=== PATIENT | female | born 1995 | race Caucasian/White ===

== ENCOUNTER 2018-07-18 08:10 | Emergency (ER) | payer MEDICAID ==
[2018-07-18] MEDS: SOD CHLORIDE 0.9% 1,000 ML IV (08:57)
[2018-07-18] MEDS: ONDANSETRON 4 MG INJ IV (08:57)
[2018-07-18 09:05] LABS: ADD MAN DIFF? NO
[2018-07-18 09:07] LABS: WHITE BLOOD COUNT 10.2 10^3/ul (4.8-10.8)
[2018-07-18 09:07] LABS: BASOPHILS % 0.3 % (0.0-2.0); EOSINOPHILS # 0.1 10^3/ul (0.0-0.5); EOSINOPHILS % 0.9 % (0.0-7.0); HEMATOCRIT 42.7 % (37.0-47.0); HEMOGLOBIN 14.2 g/dl (12.0-16.0); LYMPHOCYTES # 1.3 10^3/ul (0.8-2.9); MEAN CORPUSCULAR HEMOGLOBIN 28.8 pg (29.0-33.0); MEAN CORPUSCULAR HGB CONC 33.3 g/dl (32.0-37.0); MEAN CORPUSCULAR VOLUME 86.6 fl (82.0-101.0); MEAN PLATELET VOLUME 9.1 fl (7.4-10.4); MONOCYTE # 0.5 10^3/ul (0.3-0.9); MONOCYTES % 4.7 % (0.0-11.0); NEUTROPHIL # 8.2 10^3/ul (1.6-7.5); NEUTROPHILS % 80.8 % (39.0-77.0); PLATELET COUNT 368 10^3/UL (140-415); RED BLOOD COUNT 4.93 10^6/ul (4.20-5.40)
[2018-07-18] MEDS: KETOROLAC 30 MG INJ IV (09:10)
[2018-07-18 09:16] LABS: ADD UMIC YES; UR AMORPHOUS CRYSTAL FEW /HPF (NONE SEEN); UR ASCORBIC ACID NEGATIVE (NEGATIVE); UR BACTERIA FEW /HPF (NONE SEEN); UR BILIRUBIN (Dip) NEGATIVE (NEGATIVE); UR BLOOD (Dip) NEGATIVE (NEGATIVE); UR CLARITY CLOUDY (CLEAR); UR COLOR YELLOW (YELLOW); UR GLUCOSE (Dip) NEGATIVE (NEGATIVE); UR KETONES (Dip) NEGATIVE (NEGATIVE); UR LEUKOCYTE ESTERASE (Dip) NEGATIVE Leu/ul (NEGATIVE); UR MUCUS FEW /HPF (NONE SEEN); UR NITRITE (Dip) NEGATIVE (NEGATIVE); UR RBC 2 /HPF (0-5); UR SPECIFIC GRAVITY (Dip) 1.024 (1.003-1.030); UR SQUAMOUS EPITHELIAL CELL MODERATE /HPF (FEW); UR TOTAL PROTEIN (Dip) NEGATIVE (NEGATIVE); UR UROBILINOGEN (Dip) NEGATIVE (NEGATIVE); UR WBC 6 /HPF (0-5)
[2018-07-18 09:34] LABS: ALANINE AMINOTRANSFERASE 114 IU/L (13-69); ALBUMIN 4.1 g/dl (3.3-4.9); ALBUMIN/GLOBULIN RATIO 1.13; ALKALINE PHOSPHATASE 91 IU/L (42-121); ANION GAP 11 (5-13); ASPARTATE AMINO TRANSFERASE 475 IU/L (15-46); BILIRUBIN,INDIRECT 0.8 mg/dl (0-1.1); BILIRUBIN,TOTAL 0.8 mg/dl (0.2-1.3); BLOOD UREA NITROGEN 12 mg/dl (7-20); CALCIUM 9.5 mg/dl (8.4-10.2); CARBON DIOXIDE 29 mmol/L (21-31); CHLORIDE 102 mmol/L (97-110); Estimated GFR > 60 mL/min (>60); GLUCOSE 104 mg/dl (70-220); LIPASE 82 U/L (23-300); POTASSIUM 4.3 mmol/L (3.5-5.1); SODIUM 142 mmol/L (135-144); TOTAL PROTEIN 7.7 g/dl (6.1-8.1)
== END 2018-07-18 10:19 | disposition home or self-care (01) ==
LOC: FTE 08:10
DX: K80.80 Other cholelithiasis without obstruction (principal); R79.89 Other specified abnormal findings of blood chemistry
CPT/HCPCS: 36415; 76705; 80053; 81001; 81025; 83690; 85025; 96361; 96374; 96375; 99285-25

== ENCOUNTER 2018-07-18 18:57 | Inpatient (IN) | payer MEDICAID ==
[2018-07-18] MEDS: SOD CHLORIDE 0.9% 1,000 ML IV (19:47)
[2018-07-18] MEDS: ONDANSETRON 4 MG INJ IV (19:47)
[2018-07-18] MEDS: morphine 4 MG/ML VIAL IV (19:47)
[2018-07-18 20:07] LABS: ADD MAN DIFF? NO
[2018-07-18 20:09] LABS: WHITE BLOOD COUNT 6.6 10^3/ul (4.8-10.8)
[2018-07-18 20:09] LABS: BASOPHILS % 0.5 % (0.0-2.0); EOSINOPHILS % 0.6 % (0.0-7.0); HEMATOCRIT 40.4 % (37.0-47.0); HEMOGLOBIN 13.5 g/dl (12.0-16.0); LYMPHOCYTES # 0.8 10^3/ul (0.8-2.9); LYMPHOCYTES % 11.5 % (15.0-51.0); MEAN CORPUSCULAR HGB CONC 33.4 g/dl (32.0-37.0); MEAN CORPUSCULAR VOLUME 86.9 fl (82.0-101.0); MEAN PLATELET VOLUME 9.1 fl (7.4-10.4); MONOCYTE # 0.5 10^3/ul (0.3-0.9); NEUTROPHIL # 5.2 10^3/ul (1.6-7.5); NEUTROPHILS % 79.1 % (39.0-77.0); PLATELET COUNT 335 10^3/UL (140-415); RED BLOOD COUNT 4.65 10^6/ul (4.20-5.40); RED CELL DISTRIBUTION WIDTH 12.1 % (11.5-14.5)
[2018-07-18 20:19] LABS: ADD UMIC NO; UR AMORPHOUS CRYSTAL FEW /HPF (NONE SEEN); UR ASCORBIC ACID NEGATIVE (NEGATIVE); UR BACTERIA FEW /HPF (NONE SEEN); UR BILIRUBIN (Dip) NEGATIVE (NEGATIVE); UR BLOOD (Dip) NEGATIVE (NEGATIVE); UR CLARITY SLIGHTLY CLOUDY (CLEAR); UR COLOR YELLOW (YELLOW); UR GLUCOSE (Dip) NEGATIVE (NEGATIVE); UR KETONES (Dip) NEGATIVE (NEGATIVE); UR LEUKOCYTE ESTERASE (Dip) NEGATIVE Leu/ul (NEGATIVE); UR MUCUS FEW /HPF (NONE SEEN); UR NITRITE (Dip) NEGATIVE (NEGATIVE); UR RBC 2 /HPF (0-5); UR SPECIFIC GRAVITY (Dip) 1.016 (1.003-1.030); UR SQUAMOUS EPITHELIAL CELL FEW /HPF (FEW); UR TOTAL PROTEIN (Dip) NEGATIVE (NEGATIVE); UR UROBILINOGEN (Dip) NEGATIVE (NEGATIVE); UR WBC 2 /HPF (0-5)
[2018-07-18 20:29] LABS: INR 0.93; PROTIME 12.5 Sec (11.9-14.9)
[2018-07-18 20:32] LABS: ALANINE AMINOTRANSFERASE 719 IU/L (13-69); ALBUMIN 4.7 g/dl (3.3-4.9); ALBUMIN/GLOBULIN RATIO 1.62; ALKALINE PHOSPHATASE 137 IU/L (42-121); ANION GAP 8 (5-13); BILIRUBIN,INDIRECT 1.5 mg/dl (0-1.1); BILIRUBIN,TOTAL 1.7 mg/dl (0.2-1.3); BLOOD UREA NITROGEN 8 mg/dl (7-20); CALCIUM 9.4 mg/dl (8.4-10.2); CARBON DIOXIDE 32 mmol/L (21-31); CHLORIDE 103 mmol/L (97-110); CREATININE 0.67 mg/dl (0.44-1.00); Estimated GFR > 60 mL/min (>60); GLUCOSE 115 mg/dl (70-220); LIPASE 188 U/L (23-300); POTASSIUM 4.3 mmol/L (3.5-5.1); SODIUM 143 mmol/L (135-144); TOTAL PROTEIN 7.6 g/dl (6.1-8.1)
[2018-07-18 20:49] LABS: ASPARTATE AMINO TRANSFERASE 2484 IU/L (15-46)
[2018-07-18] MEDS: SOD CHLORIDE 0.9% 100 ML (21:01)
[2018-07-18] MEDS: IOHEXOL 300MG/ML 150 ML BTL (21:01)
[2018-07-18] MEDS ORDERED: ONDANSETRON 4 MG INJ IV (21:30)
[2018-07-18] MEDS ORDERED: ACETAMINOPHEN 325 MG TAB PO (21:30)
[2018-07-18] MEDS: AMPICILLIN/SULB 3 GM/NS (PMX) 100 ML IVPB (21:58)
[2018-07-19] MEDS ORDERED: NACL 0.9% 3 ML SYG IV
[2018-07-19] MEDS ORDERED: ALBUTEROL/IPRATROPIUM (NEB) 3 ML AMP HHN
[2018-07-19] MEDS ORDERED: ONDANSETRON 4 MG INJ IV
[2018-07-19] MEDS: DEXTROSE 5%-0.45% NACL 1,000 ML IV ×3 (00:34→18:24)
[2018-07-19] MEDS: KETOROLAC 30 MG INJ IV ×3 (00:35→23:12)
[2018-07-19 07:06] LABS: ADD MAN DIFF? NO
[2018-07-19 07:15] LABS: BASOPHILS % 0.4 % (0.0-2.0); EOSINOPHILS # 0.1 10^3/ul (0.0-0.5); EOSINOPHILS % 1.5 % (0.0-7.0); HEMATOCRIT 37.4 % (37.0-47.0); HEMOGLOBIN 12.3 g/dl (12.0-16.0); LYMPHOCYTES # 1.1 10^3/ul (0.8-2.9); LYMPHOCYTES % 23.4 % (15.0-51.0); MEAN CORPUSCULAR HEMOGLOBIN 28.8 pg (29.0-33.0); MEAN CORPUSCULAR HGB CONC 32.9 g/dl (32.0-37.0); MEAN CORPUSCULAR VOLUME 87.6 fl (82.0-101.0); MEAN PLATELET VOLUME 9.5 fl (7.4-10.4); MONOCYTE # 0.3 10^3/ul (0.3-0.9); MONOCYTES % 6.1 % (0.0-11.0); NEUTROPHIL # 3.2 10^3/ul (1.6-7.5); NEUTROPHILS % 68.4 % (39.0-77.0); PLATELET COUNT 320 10^3/UL (140-415); RED BLOOD COUNT 4.27 10^6/ul (4.20-5.40); RED CELL DISTRIBUTION WIDTH 12.2 % (11.5-14.5)
[2018-07-19 07:15] LABS: WHITE BLOOD COUNT 4.6 10^3/ul (4.8-10.8)
[2018-07-19 07:37] LABS: ALANINE AMINOTRANSFERASE 711 IU/L (13-69); ALBUMIN 3.2 g/dl (3.3-4.9); ALBUMIN/GLOBULIN RATIO 1.14; ALKALINE PHOSPHATASE 124 IU/L (42-121); ANION GAP 8 (5-13); BILIRUBIN,INDIRECT 1.7 mg/dl (0-1.1); BILIRUBIN,TOTAL 2.4 mg/dl (0.2-1.3); BLOOD UREA NITROGEN 7 mg/dl (7-20); CALCIUM 8.7 mg/dl (8.4-10.2); CARBON DIOXIDE 26 mmol/L (21-31); CHLORIDE 107 mmol/L (97-110); CREATININE 0.64 mg/dl (0.44-1.00); Estimated GFR > 60 mL/min (>60); GLUCOSE 108 mg/dl (70-220); PHOSPHORUS 3.4 mg/dl (2.5-4.9); POTASSIUM 3.9 mmol/L (3.5-5.1); SODIUM 141 mmol/L (135-144)
[2018-07-19 07:43] LABS: ASPARTATE AMINO TRANSFERASE 1398 IU/L (15-46)
[2018-07-19] MEDS: FAMOTIDINE 20 MG INJ IV ×2 (09:21→20:42)
[2018-07-19] MEDS: PIPER-TAZO 3.375 GM IV (PMX) 100 ML IVPB ×3 (10:13→18:24)
[2018-07-19 16:16] LABS: GAMMA GLUTAMYL TRANSPEPTIDASE 536 IU/L (0-50)
[2018-07-20] MEDS: PIPER-TAZO 3.375 GM IV (PMX) 100 ML IVPB ×4 (00:13→18:00)
[2018-07-20] MEDS: DEXTROSE 5%-0.45% NACL 1,000 ML IV ×4 (00:59→17:39)
[2018-07-20 06:32] LABS: ADD MAN DIFF? NO
[2018-07-20 06:39] LABS: WHITE BLOOD COUNT 5.3 10^3/ul (4.8-10.8)
[2018-07-20 06:39] LABS: BASOPHILS % 0.4 % (0.0-2.0); EOSINOPHILS # 0.4 10^3/ul (0.0-0.5); EOSINOPHILS % 6.6 % (0.0-7.0); HEMATOCRIT 35.8 % (37.0-47.0); HEMOGLOBIN 11.8 g/dl (12.0-16.0); LYMPHOCYTES # 1.8 10^3/ul (0.8-2.9); LYMPHOCYTES % 32.8 % (15.0-51.0); MEAN CORPUSCULAR HEMOGLOBIN 29.4 pg (29.0-33.0); MEAN CORPUSCULAR VOLUME 89.1 fl (82.0-101.0); MEAN PLATELET VOLUME 9.3 fl (7.4-10.4); MONOCYTE # 0.5 10^3/ul (0.3-0.9); MONOCYTES % 8.8 % (0.0-11.0); NEUTROPHIL # 2.7 10^3/ul (1.6-7.5); NEUTROPHILS % 51.2 % (39.0-77.0); PLATELET COUNT 270 10^3/UL (140-415); RED BLOOD COUNT 4.02 10^6/ul (4.20-5.40); RED CELL DISTRIBUTION WIDTH 12.4 % (11.5-14.5)
[2018-07-20 07:00] LABS: INR 0.96; PROTIME 12.9 Sec (11.9-14.9)
[2018-07-20] MEDS ORDERED: ACETAMINOPHEN 1000 MG/100 ML IVPB (07:00)
[2018-07-20 07:06] LABS: MAGNESIUM 1.9 mg/dl (1.7-2.5)
[2018-07-20 07:06] LABS: PHOSPHORUS 3.6 mg/dl (2.5-4.9)
[2018-07-20 07:07] LABS: ALANINE AMINOTRANSFERASE 449 IU/L (13-69); ALBUMIN 2.9 g/dl (3.3-4.9); ALBUMIN/GLOBULIN RATIO 1.03; ALKALINE PHOSPHATASE 121 IU/L (42-121); ANION GAP 7 (5-13); ASPARTATE AMINO TRANSFERASE 416 IU/L (15-46); BLOOD UREA NITROGEN 10 mg/dl (7-20); CALCIUM 8.4 mg/dl (8.4-10.2); CARBON DIOXIDE 27 mmol/L (21-31); CHLORIDE 107 mmol/L (97-110); CREATININE 0.75 mg/dl (0.44-1.00); Estimated GFR > 60 mL/min (>60); GLUCOSE 89 mg/dl (70-220); POTASSIUM 3.8 mmol/L (3.5-5.1); SODIUM 141 mmol/L (135-144); TOTAL PROTEIN 5.7 g/dl (6.1-8.1)
[2018-07-20 08:01] LABS: BILIRUBIN,TOTAL 2.4 mg/dl (0.2-1.3)
[2018-07-20] MEDS: FAMOTIDINE 20 MG INJ IV ×2 (09:24→21:45)
[2018-07-20 11:25] LABS: AMPHETAMINE/METHAMPHETAMINE Negative (NEGATIVE); BARBITURATES Negative (NEGATIVE); BENZODIAZEPINES Negative (NEGATIVE); CANNABINOIDS Negative (NEGATIVE); COCAINE Negative (NEGATIVE); OPIATES Negative (NEGATIVE)
[2018-07-20 12:01] LABS: MITOCHONDRIAL TB NEGATIVE (NEGATIVE); SMOOTH MUSCLE AB SCREEN NEGATIVE (NEGATIVE)
[2018-07-20] MEDS: KETOROLAC 30 MG INJ IV (12:42)
[2018-07-20] MEDS ORDERED: LIDOCAINE 2% (MDV) 20 ML INJ (14:33)
[2018-07-20] MEDS ORDERED: LIDOCAINE 0.5% (MDV) 50 ML INJ (14:33)
[2018-07-20] MEDS ORDERED: BUPIVACAINE 0.25%/EPI (SDV) 30 ML INJ (14:33)
[2018-07-20 16:31] LABS: ANA SCREEN NEGATIVE (NEGATIVE)
[2018-07-20] MEDS ORDERED: MIDAZOLAM 1 MG/ML 2 ML INJ (18:48)
[2018-07-20] MEDS ORDERED: LIDOCAINE 2% (SDV) 5 ML INJ (18:49)
[2018-07-20] MEDS ORDERED: PROPOFOL 20 ML (18:49)
[2018-07-20] MEDS ORDERED: FENTAnyl 50 MCG/ML VIAL (18:49)
[2018-07-20] MEDS ORDERED: ROPIVACAINE 0.5 % 30 ML VIAL (18:56)
[2018-07-20] MEDS ORDERED: ONDANSETRON 4 MG INJ (18:59)
[2018-07-20] MEDS ORDERED: DEXAMETHASONE 4 MG/ML 1 ML INJ (18:59)
[2018-07-20] MEDS ORDERED: FAMOTIDINE 20 MG INJ (19:00)
[2018-07-20] MEDS ORDERED: CEFAZOLIN 1 GM INJ (19:04)
[2018-07-20] MEDS ORDERED: metroNIDAZOLE 500 MG/NS (PMX) 100 ML IVPB (19:04)
[2018-07-20] MEDS ORDERED: IOHEXOL 300MG/ML 30 ML BTL (19:04)
[2018-07-20] MEDS ORDERED: ONDANSETRON 4 MG INJ IV (19:30)
[2018-07-20] MEDS ORDERED: PROCHLORPERAZINE 10 MG INJ IV (19:30)
[2018-07-20] MEDS ORDERED: HYDROmorphONE 1 MG/5 ML IV SYRINGE IV (19:30)
[2018-07-20] MEDS ORDERED: FENTAnyl 50 MCG/ML VIAL IV (19:30)
[2018-07-20] MEDS ORDERED: MEPERIDINE 25 MG INJ IV (19:30)
[2018-07-20] MEDS ORDERED: DIPHENHYDRAMINE 50 MG INJ IV (19:30)
[2018-07-20] MEDS ORDERED: HYDROmorphONE 2 MG/ML SYG (19:40)
[2018-07-20] MEDS ORDERED: SUGAMMADEX SODIUM 200 MG/2 ML VIAL IV (19:48)
[2018-07-21] MEDS: PIPER-TAZO 3.375 GM IV (PMX) 100 ML IVPB ×5 (00:28→23:58)
[2018-07-21] MEDS: KETOROLAC 30 MG INJ IV ×3 (00:36→20:19)
[2018-07-21] MEDS: DEXTROSE 5%-0.45% NACL 1,000 ML IV ×6 (01:59→23:58)
[2018-07-21] MEDS: morphine 2 MG INJ IV ×3 (05:19→15:56)
[2018-07-21 05:21] LABS: ADD MAN DIFF? NO
[2018-07-21 05:27] LABS: BASOPHILS % 0.2 % (0.0-2.0); EOSINOPHILS % 0.1 % (0.0-7.0); HEMOGLOBIN 12.5 g/dl (12.0-16.0); LYMPHOCYTES # 0.8 10^3/ul (0.8-2.9); LYMPHOCYTES % 7.7 % (15.0-51.0); MEAN CORPUSCULAR HEMOGLOBIN 28.9 pg (29.0-33.0); MEAN CORPUSCULAR HGB CONC 32.9 g/dl (32.0-37.0); MEAN PLATELET VOLUME 9.4 fl (7.4-10.4); MONOCYTE # 0.5 10^3/ul (0.3-0.9); MONOCYTES % 4.6 % (0.0-11.0); NEUTROPHIL # 8.7 10^3/ul (1.6-7.5); PLATELET COUNT 291 10^3/UL (140-415); RED BLOOD COUNT 4.32 10^6/ul (4.20-5.40); RED CELL DISTRIBUTION WIDTH 11.9 % (11.5-14.5)
[2018-07-21 05:44] LABS: MAGNESIUM 1.8 mg/dl (1.7-2.5)
[2018-07-21 05:44] LABS: PHOSPHORUS 4.9 mg/dl (2.5-4.9)
[2018-07-21 05:48] LABS: ALANINE AMINOTRANSFERASE 351 IU/L (13-69); ALBUMIN 3.7 g/dl (3.3-4.9); ALBUMIN/GLOBULIN RATIO 1.27; ALKALINE PHOSPHATASE 115 IU/L (42-121); ANION GAP 8 (5-13); ASPARTATE AMINO TRANSFERASE 206 IU/L (15-46); BILIRUBIN,INDIRECT 1.1 mg/dl (0-1.1); BILIRUBIN,TOTAL 1.1 mg/dl (0.2-1.3); BLOOD UREA NITROGEN 7 mg/dl (7-20); CALCIUM 8.5 mg/dl (8.4-10.2); CARBON DIOXIDE 26 mmol/L (21-31); CHLORIDE 106 mmol/L (97-110); CREATININE 0.65 mg/dl (0.44-1.00); Estimated GFR > 60 mL/min (>60); GLUCOSE 135 mg/dl (70-220); POTASSIUM 4.1 mmol/L (3.5-5.1); SODIUM 140 mmol/L (135-144); TOTAL PROTEIN 6.6 g/dl (6.1-8.1)
[2018-07-21] MEDS: FAMOTIDINE 20 MG INJ IV ×2 (08:04→20:18)
[2018-07-22] MEDS: DEXTROSE 5%-0.45% NACL 1,000 ML IV ×2 (02:59→09:31)
[2018-07-22] MEDS: PIPER-TAZO 3.375 GM IV (PMX) 100 ML IVPB ×4 (05:59→23:24)
[2018-07-22] MEDS: morphine 2 MG INJ IV ×2 (06:19→23:25)
[2018-07-22 06:21] LABS: ADD MAN DIFF? NO
[2018-07-22 06:33] LABS: WHITE BLOOD COUNT 5.7 10^3/ul (4.8-10.8)
[2018-07-22 06:33] LABS: BASOPHILS % 0.4 % (0.0-2.0); EOSINOPHILS # 0.2 10^3/ul (0.0-0.5); EOSINOPHILS % 3.5 % (0.0-7.0); HEMATOCRIT 34.2 % (37.0-47.0); HEMOGLOBIN 11.3 g/dl (12.0-16.0); LYMPHOCYTES % 35.4 % (15.0-51.0); MEAN CORPUSCULAR HEMOGLOBIN 29.5 pg (29.0-33.0); MEAN CORPUSCULAR VOLUME 89.3 fl (82.0-101.0); MEAN PLATELET VOLUME 9.4 fl (7.4-10.4); MONOCYTE # 0.4 10^3/ul (0.3-0.9); NEUTROPHILS % 53.3 % (39.0-77.0); PLATELET COUNT 255 10^3/UL (140-415); RED BLOOD COUNT 3.83 10^6/ul (4.20-5.40); RED CELL DISTRIBUTION WIDTH 12.3 % (11.5-14.5)
[2018-07-22 06:50] LABS: MAGNESIUM 1.8 mg/dl (1.7-2.5)
[2018-07-22 06:50] LABS: PHOSPHORUS 3.5 mg/dl (2.5-4.9)
[2018-07-22 06:52] LABS: ALANINE AMINOTRANSFERASE 233 IU/L (13-69); ALBUMIN 3.1 g/dl (3.3-4.9); ALBUMIN/GLOBULIN RATIO 1.19; ALKALINE PHOSPHATASE 111 IU/L (42-121); ANION GAP 6 (5-13); ASPARTATE AMINO TRANSFERASE 113 IU/L (15-46); BILIRUBIN,INDIRECT 0.8 mg/dl (0-1.1); BILIRUBIN,TOTAL 0.8 mg/dl (0.2-1.3); BLOOD UREA NITROGEN 6 mg/dl (7-20); CALCIUM 7.9 mg/dl (8.4-10.2); CARBON DIOXIDE 27 mmol/L (21-31); CHLORIDE 107 mmol/L (97-110); CREATININE 0.71 mg/dl (0.44-1.00); Estimated GFR > 60 mL/min (>60); GLUCOSE 98 mg/dl (70-220); POTASSIUM 3.6 mmol/L (3.5-5.1); SODIUM 140 mmol/L (135-144); TOTAL PROTEIN 5.7 g/dl (6.1-8.1)
[2018-07-22] MEDS: FAMOTIDINE 20 MG INJ IV ×2 (09:24→20:49)
[2018-07-22] MEDS ORDERED: LIDOCAINE 100 MG SYRINGE (12:55)
[2018-07-22] MEDS ORDERED: DEXAMETHASONE 4 MG/ML 1 ML INJ (12:55)
[2018-07-22] MEDS ORDERED: PHENYLephrine (100 MCG/ML) 5ML SYG (12:55)
[2018-07-22] MEDS ORDERED: PROPOFOL 20 ML (12:55)
[2018-07-22] MEDS ORDERED: ONDANSETRON 4 MG INJ (12:55)
[2018-07-22] MEDS ORDERED: SUCCINYLCHOLINE CHLORIDE 100 MG/5 ML SYG IV (12:55)
[2018-07-22] MEDS ORDERED: MIDAZOLAM 1 MG/ML 2 ML INJ (13:03)
[2018-07-22] MEDS ORDERED: IOHEXOL 300MG/ML 30 ML BTL (13:03)
[2018-07-22] MEDS ORDERED: FENTAnyl 50 MCG/ML VIAL (13:03)
[2018-07-22] MEDS: INDOMETHACIN 50 MG SUPP PR (13:30)
[2018-07-22] MEDS ORDERED: FENTAnyl 50 MCG/ML VIAL IV ×2 (14:30)
[2018-07-22] MEDS ORDERED: hydrALAzine 20 MG INJ IV (14:30)
[2018-07-22] MEDS ORDERED: METOCLOPRAMIDE 10 MG INJ IV (14:30)
[2018-07-22] MEDS ORDERED: LABETALOL HCL 20MG INJ IV (14:30)
[2018-07-22] MEDS ORDERED: MEPERIDINE 25 MG INJ IV (14:30)
[2018-07-22] MEDS ORDERED: HYDROmorphONE 1 MG/5 ML IV SYRINGE IV ×2 (14:30)
[2018-07-22] MEDS ORDERED: ONDANSETRON 4 MG INJ IV (14:30)
[2018-07-23] MEDS: DEXTROSE 5%-0.45% NACL 1,000 ML IV ×3 (01:56→12:19)
[2018-07-23] MEDS: PIPER-TAZO 3.375 GM IV (PMX) 100 ML IVPB ×2 (05:26→12:06)
[2018-07-23 05:41] LABS: ADD MAN DIFF? NO
[2018-07-23 05:47] LABS: BASOPHILS % 0.1 % (0.0-2.0); EOSINOPHILS % 0.1 % (0.0-7.0); HEMOGLOBIN 11.7 g/dl (12.0-16.0); LYMPHOCYTES # 1.4 10^3/ul (0.8-2.9); LYMPHOCYTES % 17.7 % (15.0-51.0); MEAN CORPUSCULAR HEMOGLOBIN 29.2 pg (29.0-33.0); MEAN CORPUSCULAR HGB CONC 33.4 g/dl (32.0-37.0); MEAN CORPUSCULAR VOLUME 87.3 fl (82.0-101.0); MEAN PLATELET VOLUME 9.7 fl (7.4-10.4); MONOCYTE # 0.6 10^3/ul (0.3-0.9); NEUTROPHILS % 74.8 % (39.0-77.0); PLATELET COUNT 296 10^3/UL (140-415); RED BLOOD COUNT 4.01 10^6/ul (4.20-5.40)
[2018-07-23 06:00] LABS: PHOSPHORUS 4.1 mg/dl (2.5-4.9)
[2018-07-23 06:00] LABS: MAGNESIUM 1.9 mg/dl (1.7-2.5)
[2018-07-23 06:36] LABS: ALANINE AMINOTRANSFERASE 197 IU/L (13-69); ALBUMIN 3.4 g/dl (3.3-4.9); ALBUMIN/GLOBULIN RATIO 1.21; ALKALINE PHOSPHATASE 113 IU/L (42-121); ANION GAP 6 (5-13); ASPARTATE AMINO TRANSFERASE 65 IU/L (15-46); BILIRUBIN,INDIRECT 0.7 mg/dl (0-1.1); BILIRUBIN,TOTAL 0.7 mg/dl (0.2-1.3); BLOOD UREA NITROGEN 4 mg/dl (7-20); CALCIUM 8.4 mg/dl (8.4-10.2); CARBON DIOXIDE 27 mmol/L (21-31); CHLORIDE 109 mmol/L (97-110); CREATININE 0.57 mg/dl (0.44-1.00); Estimated GFR > 60 mL/min (>60); GLUCOSE 119 mg/dl (70-220); POTASSIUM 3.8 mmol/L (3.5-5.1); SODIUM 142 mmol/L (135-144); TOTAL PROTEIN 6.2 g/dl (6.1-8.1)
[2018-07-23] MEDS: FAMOTIDINE 20 MG INJ IV (09:37)
[2018-07-23] MEDS: morphine 2 MG INJ IV ×2 (09:45→14:10)
== END 2018-07-23 15:40 | disposition home or self-care (01) | DRG 419 ==
LOC: FTE 18:57 → 2NE 21:23
PROC: 0FT44ZZ Resection of Gallbladder, Percutaneous Endoscopic Approach (ICD-10-PCS; principal; 2018-07-20 14:00)
PROC: 0FB04ZX Excision of Liver, Percutaneous Endoscopic Approach, Diagnostic (ICD-10-PCS; 2018-07-20 14:00)
PROC: 0FD98ZX Extraction of Common Bile Duct, Via Natural or Artificial Opening Endoscopic, Diagnostic (ICD-10-PCS; 2018-07-20 18:44)
PROC: 0F798DZ Dilation of Common Bile Duct with Intraluminal Device, Via Natural or Artificial Opening Endoscopic (ICD-10-PCS; 2018-07-20 18:44)
DX: K80.64 Calculus of gallbladder and bile duct with chronic cholecystitis without obstruction (principal); E66.01 Morbid (severe) obesity due to excess calories; Z68.35 Body mass index [BMI] 35.0-35.9, adult; R74.0 Nonspecific elevation of levels of transaminase and lactic acid dehydrogenase [LDH]; E80.6 Other disorders of bilirubin metabolism; E88.09 Other disorders of plasma-protein metabolism, not elsewhere classified; E83.51 Hypocalcemia
CPT/HCPCS: 36415; 74177; 74181; 74330; 80053; 80307; 81001; 81003; 81025; 82977; 83605; 83690; 83735; 84100; 85025; 85610; 85730; 86038; 86255; 87040; 88104; 88304; 88305; 88307; 88313; 96361; 96374; 96375; 99285-25